=== PATIENT | female | born 1985 | race Caucasian/White ===

== ENCOUNTER 2021-12-01 10:46 | Observation (INO) | payer OTHER ==
[~2021-12-01] VITALS: Ht 167.6 cm; Wt 114.3 kg
[2021-12-01] MEDS ORDERED: METF-350 PO (11:11)
[2021-12-01] MEDS ORDERED: SYN.05 PO (11:12)
== END 2021-12-01 13:01 | disposition home or self-care (01) ==
LOC: MLD 10:46
PROVIDERS: ADMIT Obstetrics & Gynecology; ATTEND Obstetrics & Gynecology
DX: Z34.83 Encounter for supervision of other normal pregnancy, third trimester (principal); Z3A.36 36 weeks gestation of pregnancy
CPT/HCPCS: 59025; 76819; 81000; G0378; Q0092

== ENCOUNTER 2021-12-15 09:20 | Inpatient (IN) | payer OTHER ==
[~2021-12-15] VITALS: Ht 167.6 cm; Wt 113.9 kg
[~2021-12-15 09:20] MED LIST: METF-350 PO; SYN.05 PO
[2021-12-15] MEDS ORDERED: LACTATED RINGERS 500 ML IV SCH (10:10)
[2021-12-15] MEDS ORDERED: METHYLERGONOVINE 0.2 MG/ML AMP IM PRN (10:10)
[2021-12-15] MEDS ORDERED: OXYTOCIN 10 UNITS/ML VIAL IM SCH (10:10)
[2021-12-15] MEDS ORDERED: CARBOPROST 250 MCG/ML AMP IM PRN (10:10)
[2021-12-15 10:51] LABS: APPEARANCE,URINE SL CLOUDY (CLEAR); BILIRUBIN,URINE NEGATIVE (NEGATIVE); BLOOD, URINE NEGATIVE (NEGATIVE); COLOR,URINE YELLOW (YELLOW); LEUKOCYTE ESTERASE ,URINE 3+ (NEGATIVE); NITRITE, URINE NEGATIVE (NEGATIVE); PH,URINE 6.5 (5.0-9.0); UGLUCOSE NEGATIVE (NEGATIVE)
[2021-12-15 10:59] LABS: BASOPHILS % (AUTO) 0.3 % (0.0-2.0); EOSINOPHILS % (AUTO) 0.5 % (0.0-4.0); HEMATOCRIT 36.7 % (36-48); HEMOGLOBIN 12.2 g/dL (12.0-16.0); LYMPHOCYTES # (AUTO) 1.2 K/uL (2.5-16.5); LYMPHOCYTES % (AUTO) 17.4 % (20.5-51.1); MEAN CORPUSCULAR HEMOGLOBIN 29 pg (27-31); MEAN CORPUSCULAR HGB CONC 33 g/dL (33-37); MEAN CORPUSCULAR VOLUME 88.2 fL (80-94); MONOCYTES # (AUTO) 0.5 K/uL (0.8-1.0); NEUTROPHILS # (AUTO) 4.9 K/uL (1.8-7.7); NEUTROPHILS % (AUTO) 73.8 % (42.2-75.2); PLATELET COUNT (AUTO) 231 K/uL (140-450); RED BLOOD CELL COUNT(AUTO) 4.16 MIL/uL (4.20-5.40); RED CELL DISTRIBUTION WIDTH 15.9 % (11.6-13.7); WHITE BLOOD COUNT (AUTO) 6.6 K/uL (4.8-10.8)
[2021-12-15 11:05] LABS: RBC,URINE 0-5 /HPF (0-5)
[2021-12-15 11:08] LABS: ALBUMIN 2.7 g/dL (3.4-5.0); ANION GAP 14.1 (8-16); CALCIUM OXALATE CRYSTALS,UR None Seen /HPF (None Seen); CARBON DIOXIDE 22.7 mmol/L (21-32); CREATININE 0.7 mg/dL (0.6-1.3); OTHER CRYSTALS,URINE None Seen /HPF (None Seen); POTASSIUM 3.8 mmol/L (3.5-5.1); TOTAL BILIRUBIN 0.7 mg/dL (0.0-1.0); TRICHOMONAS,URINE None Seen /HPF (None Seen); TRIPLE PHOSPHATE CRYSTAL,UR None Seen /HPF (None Seen); URIC ACID CRYSTALS,URINE None Seen /HPF (None Seen); URINE AMORPHOUS URATE None Seen /HPF (None Seen); YEAST,URINE None Seen /HPF (None Seen)
[2021-12-15 11:09] LABS: COARSE GRANULAR CASTS,URINE None Seen /LPF (None Seen); FINE GRANULAR CASTS,URINE None Seen /LPF (None Seen); HYALINE CASTS, URINE None Seen /LPF (None Seen); OTHER CASTS, URINE None Seen /LPF (None Seen); RED BLOOD CELL CASTS,URINE None Seen /LPF (None Seen); WAXY CASTS,URINE None Seen /LPF (None Seen)
[2021-12-15] MEDS: LACTATED RINGERS 1,000 ML IV SCH ×2 (11:43→19:51)
[2021-12-15] MEDS ORDERED: INSULIN LISPRO SLIDING SCALE 100 UNITS/ML VIAL SUBQ PRN (12:20)
[2021-12-15] MEDS ORDERED: BLOOD GLUCOSE MONITORING 1 DEV DEV FS SCH (12:20)
[2021-12-15] MEDS: MISOPROSTOL 25 MCG TAB VG SCH ×2 (13:09)
[2021-12-15 14:22] VITALS: BP 130/71
--- NOTE | 2021-12-15 14:55 | NUR ---
PATIENT HAS BEEN SCREENED AND CATEGORIZED LOW NUTRITION RISK. PATIENT WILL BE SEEN WITHIN 7 DAYS OF ADMISSION. 12/21/[address]
[2021-12-15] MEDS ORDERED: PNV1TABL5 PO (15:23)
[2021-12-16] MEDS: LACTATED RINGERS 1,000 ML IV SCH ×2 (04:40→21:39)
[2021-12-16] MEDS: MISOPROSTOL 25 MCG TAB VG SCH (06:07)
[2021-12-16] MEDS ORDERED: OXYTOCIN 20 UNITS in LACTATED RINGERS 1,000 ML IV SCH (12:00)
[2021-12-16] MEDS ORDERED: OXYTOCIN 20 UNITS/LR PREMIX 1,000 ML IV ONE (12:07)
[2021-12-16] MEDS ORDERED: ROPIVACAINE 0.2%/NS PREMIX 200 ML EPI ONE (16:55)
[2021-12-16] MEDS ORDERED: LIDOCAINE 1% 500 MG/50 ML VIAL ONE (17:15)
[2021-12-16] MEDS ORDERED: AMPICILLIN 2,000 MG in NACL 0.9% 100 ML IV SCH (19:13)
[2021-12-16] MEDS ORDERED: AMPICILLIN 2,000 MG VIAL ONE (19:13)
[2021-12-17] MEDS ORDERED: AMPICILLIN 1,000 MG VIAL ONE ×3 (00:22→08:45)
[2021-12-17] MEDS: AMPICILLIN 1,000 MG in NACL 0.9% 50 ML IV SCH ×2 (00:35→04:46)
[2021-12-17] MEDS: LACTATED RINGERS 1,000 ML IV SCH ×2 (04:53→11:56)
[2021-12-17] MEDS ORDERED: ROPIVACAINE 0.2%/NS PREMIX 200 ML EPI ONE (10:28)
[2021-12-17] MEDS ORDERED: NEOSTIGMINE 1:1000 10 MG/10 ML VIAL ONE (13:37)
[2021-12-17] MEDS ORDERED: DEXAMETHASONE 4 MG/ML VIAL ONE (13:37)
[2021-12-17] MEDS ORDERED: ONDANSETRON 4 MG/2 ML VIAL ONE (13:37)
[2021-12-17] MEDS ORDERED: MORPHINE PRES FREE 10 MG/10 ML AMP IV ONE (13:44)
[2021-12-17] MEDS ORDERED: LIDOCAINE/EPI MPF 2%1:200000 10 ML VIAL INJ ONE (13:44)
[2021-12-17] MEDS ORDERED: OXYTOCIN 20 UNITS/LR PREMIX 1,000 ML IV ONE (14:00)
[2021-12-17] MEDS ORDERED: OXYTOCIN 20 UNITS in LACTATED RINGERS 1,000 ML IV SCH (14:25)
[2021-12-17] MEDS ORDERED: oxyCODONE/APAP 5/325 MG 1 TAB TAB PO PRN ×2 (14:25→14:30)
[2021-12-17] MEDS ORDERED: MEASLES, MUMPS, AND RUBELLA 1 VIAL SQVAC ONE (14:25)
[2021-12-17] MEDS ORDERED: METHYLERGONOVINE 0.2 MG/ML AMP IM PRN (14:25)
[2021-12-17] MEDS ORDERED: PROMETHAZINE 25 MG/ML VIAL IVP PRN (14:25)
[2021-12-17] MEDS ORDERED: METOCLOPRAMIDE 10 MG/2 ML INJ VIAL IVP PRN (15:10)
[2021-12-17] MEDS ORDERED: ONDANSETRON 4 MG/2 ML VIAL IVP PRN (15:10)
[2021-12-17] MEDS ORDERED: NALOXONE 0.4 MG/ML VIAL IVP PRN ×3 (15:10)
[2021-12-17] MEDS: KETOROLAC 30 MG/ML VIAL IM/IVP SCH (17:47)
[2021-12-17] MEDS: diphenhydrAMINE 50 MG/ML VIAL IVP PRN ×2 (17:49→22:48)
[2021-12-17] MEDS: OXYTOCIN 20 UNITS in LACTATED RINGERS 1,000 ML IV SCH (22:08)
[2021-12-18] MEDS: KETOROLAC 30 MG/ML VIAL IM/IVP SCH ×3 (00:07→12:00)
[2021-12-18] MEDS ORDERED: OXYTOCIN 20 UNITS/LR PREMIX 1,000 ML IV ONE (04:46)
[2021-12-18 05:31] LABS: BASOPHILS % (AUTO) 0.2 % (0.0-2.0); EOSINOPHILS % (AUTO) 0.1 % (0.0-4.0); HEMATOCRIT 36.9 % (36-48); HEMOGLOBIN 12.3 g/dL (12.0-16.0); LYMPHOCYTES # (AUTO) 1.5 K/uL (2.5-16.5); LYMPHOCYTES % (AUTO) 10.8 % (20.5-51.1); MEAN CORPUSCULAR HEMOGLOBIN 30 pg (27-31); MEAN CORPUSCULAR HGB CONC 33 g/dL (33-37); MEAN CORPUSCULAR VOLUME 88.9 fL (80-94); MONOCYTES # (AUTO) 1.1 K/uL (0.8-1.0); MONOCYTES % (AUTO) 8.2 % (1.7-9.3); NEUTROPHILS # (AUTO) 11.1 K/uL (1.8-7.7); NEUTROPHILS % (AUTO) 80.7 % (42.2-75.2); PLATELET COUNT (AUTO) 231 K/uL (140-450); RED BLOOD CELL COUNT(AUTO) 4.16 MIL/uL (4.20-5.40); RED CELL DISTRIBUTION WIDTH 15.9 % (11.6-13.7); WHITE BLOOD COUNT (AUTO) 13.7 K/uL (4.8-10.8)
[2021-12-18] MEDS: OXYTOCIN 20 UNITS in LACTATED RINGERS 1,000 ML IV SCH (06:05)
[2021-12-18] MEDS: IBUPROFEN 600 MG TAB PO SCH ×2 (08:00→18:26)
[2021-12-18] MEDS ORDERED: bisacodyL 10 MG SUPP RC SCH (09:00)
[2021-12-19] MEDS ORDERED: CAMERA MC ONE (04:00)
[2021-12-19] MEDS: IBUPROFEN 600 MG TAB PO SCH (08:45)
== END 2021-12-19 12:40 | disposition home or self-care (01) | DRG 540 ==
LOC: MLD 09:20 → MFCC 12-17 15:30
PROVIDERS: ADMIT Obstetrics & Gynecology; ATTEND Obstetrics & Gynecology
PROC: 10D00Z1 Extraction of Products of Conception, Low, Open Approach (ICD-10-PCS; principal; 2021-12-17 13:00)
DX: O76 Abnormality in fetal heart rate and rhythm complicating labor and delivery (principal); O45.93 Premature separation of placenta, unspecified, third trimester; O24.429 Gestational diabetes mellitus in childbirth, unspecified control; O99.824 Streptococcus B carrier state complicating childbirth; Z20.822 Contact with and (suspected) exposure to COVID-19; O69.81X0 Labor and delivery complicated by cord around neck, without compression, not applicable or unspecified; Z37.0 Single live birth; Z3A.39 39 weeks gestation of pregnancy
CPT/HCPCS: 36415; 51702; 59200; 76815; 80053; 81001; 82948; 85025; 86592; 86886; 86900; 86901; 87086; J0290; J0690; J1100; J1200; J1815; J1885; J2001; J2270; J2405; J2590; J2710; J2795; J7060; J7120; Q0092

== ENCOUNTER 2023-07-27 12:22 | Emergency (ER) | payer OTHER ==
[~2023-07-27] VITALS: Ht 167.6 cm; Wt 106.7 kg
[~2023-07-27 12:22] MED LIST changes: +PNV1TABL5 PO; +SYN.075 PO
[2023-07-27 12:55] VITALS: BP 119/68; PULSE 83; RESP 18; TEMP 97.2; O2SAT 100
[2023-07-27 14:00] LABS: BASOPHILS % (AUTO) 0.4 % (0.0-2.0); EOSINOPHILS # (AUTO) 0.1 K/uL (0-0.4); EOSINOPHILS % (AUTO) 0.9 % (0.0-4.0); HEMATOCRIT 36.8 % (36-48); HEMOGLOBIN 12.3 g/dL (12.0-16.0); LYMPHOCYTES # (AUTO) 1.7 K/uL (2.5-16.5); LYMPHOCYTES % (AUTO) 20.2 % (20.5-51.1); MEAN CORPUSCULAR HEMOGLOBIN 30 pg (27-31); MEAN CORPUSCULAR HGB CONC 33 g/dL (33-37); MEAN CORPUSCULAR VOLUME 90.5 fL (80-94); MONOCYTES # (AUTO) 0.6 K/uL (0.8-1.0); MONOCYTES % (AUTO) 7.2 % (1.7-9.3); NEUTROPHILS % (AUTO) 71.3 % (42.2-75.2); PLATELET COUNT (AUTO) 267 K/uL (140-450); RED BLOOD CELL COUNT(AUTO) 4.06 MIL/uL (4.20-5.40); RED CELL DISTRIBUTION WIDTH 14.3 % (11.6-13.7); WHITE BLOOD COUNT (AUTO) 8.4 K/uL (4.8-10.8)
[2023-07-27 14:13] LABS: ANION GAP 10.9 (8-16); CALCIUM 8.3 mg/dL (8.5-10.1); CREATININE 0.5 mg/dL (0.6-1.3); POTASSIUM 3.9 mmol/L (3.5-5.1); TOTAL BILIRUBIN 0.5 mg/dL (0.0-1.0); TOTAL PROTEIN, SERUM 6.9 g/dL (6.4-8.2)
[2023-07-27 15:12] LABS: APPEARANCE,URINE CLEAR (CLEAR); BILIRUBIN,URINE NEGATIVE (NEGATIVE); BLOOD, URINE NEGATIVE (NEGATIVE); COLOR,URINE YELLOW (YELLOW); LEUKOCYTE ESTERASE ,URINE 3+ (NEGATIVE); NITRITE, URINE NEGATIVE (NEGATIVE); PROTEIN,URINE NEGATIVE (NEGATIVE); UGLUCOSE NEGATIVE (NEGATIVE); UROBILINOGEN,URINE 0.2 EU/dL (0.2 - 1)
[2023-07-27 15:31] LABS: BACTERIA,URINE FEW /HPF (None Seen); MUCUS,URINE None Seen /LPF (None Seen); RBC,URINE 0-5 /HPF (0-5); SQUAMOUS EPITHELIAL CELL,UR 4-10 (MOD) /LPF (0-3 (FEW)); TRICHOMONAS,URINE None Seen /HPF (None Seen); WHITE BLOOD CELL CASTS,URINE None Seen /LPF (None Seen); YEAST,URINE None Seen /HPF (None Seen)
[2023-07-27] MEDS ORDERED: NITR100C7 PO (16:02)
[2023-07-27 16:10] VITALS: BP 122/67; PULSE 80; RESP 18; TEMP 97.4; O2SAT 100
== END 2023-07-27 16:10 | disposition home or self-care (01) ==
LOC: MED 12:22
DX: O23.42 Unspecified infection of urinary tract in pregnancy, second trimester (principal); N39.0 Urinary tract infection, site not specified; E03.9 Hypothyroidism, unspecified; Z3A.18 18 weeks gestation of pregnancy; Z79.899 Other long term (current) drug therapy
CPT/HCPCS: 36415; 76805; 80053; 81001; 83690; 84702; 85025; 86886; 86900; 86901; 87086; 99284

== ENCOUNTER 2023-12-11 21:07 | Inpatient (IN) | payer OTHER ==
[~2023-12-11] VITALS: Ht 167.6 cm; Wt 110.2 kg
[~2023-12-11 21:07] MED LIST changes: +NITR100C7 PO
[2023-12-11 22:00] VITALS: BP 130/72; PULSE 89; RESP 18; TEMP 98.1
[2023-12-11 22:07] LABS: APPEARANCE,URINE SLIGHTLY HAZY (CLEAR); BILIRUBIN,URINE NEGATIVE (NEGATIVE); BLOOD, URINE NEGATIVE (NEGATIVE); COLOR,URINE YELLOW (YELLOW); LEUKOCYTE ESTERASE ,URINE 2+ (NEGATIVE); NITRITE, URINE NEGATIVE (NEGATIVE); PH,URINE 6.5 (5.0-9.0); PROTEIN,URINE NEGATIVE (NEGATIVE); UGLUCOSE NEGATIVE (NEGATIVE)
[2023-12-11 22:09] LABS: RBC,URINE 0 /HPF (0-5)
[2023-12-11 22:10] LABS: BACTERIA,URINE 2+ /HPF (None Seen); BASOPHILS % (AUTO) 0.4 % (0.0-2.0); EOSINOPHILS # (AUTO) 0.1 K/uL (0-0.4); EOSINOPHILS % (AUTO) 1.7 % (0.0-4.0); HEMATOCRIT 36.6 % (36-48); HEMOGLOBIN 12.5 g/dL (12.0-16.0); LYMPHOCYTES # (AUTO) 1.2 K/uL (2.5-16.5); LYMPHOCYTES % (AUTO) 17.6 % (20.5-51.1); MEAN CORPUSCULAR HEMOGLOBIN 30 pg (27-31); MEAN CORPUSCULAR HGB CONC 34 g/dL (33-37); MONOCYTES # (AUTO) 0.8 K/uL (0.8-1.0); MONOCYTES % (AUTO) 11.3 % (1.7-9.3); MUCUS,URINE None Seen /LPF (None Seen); NEUTROPHILS # (AUTO) 4.6 K/uL (1.8-7.7); PLATELET COUNT (AUTO) 236 K/uL (140-450); RED BLOOD CELL COUNT(AUTO) 4.11 MIL/uL (4.20-5.40); RED CELL DISTRIBUTION WIDTH 16.1 % (11.6-13.7); SQUAMOUS EPITHELIAL CELL,UR 0-3 (FEW) /LPF (0-3 (FEW)); WHITE BLOOD COUNT (AUTO) 6.7 K/uL (4.8-10.8)
[2023-12-11 22:25] LABS: ALBUMIN 2.8 g/dL (3.4-5.0); ANION GAP 15.6 (8-16); CALCIUM 8.7 mg/dL (8.5-10.1); CARBON DIOXIDE 21.2 mmol/L (21-32); CREATININE 0.5 mg/dL (0.6-1.3); POTASSIUM 3.8 mmol/L (3.5-5.1); TOTAL BILIRUBIN 0.8 mg/dL (0.0-1.0); TOTAL PROTEIN, SERUM 6.4 g/dL (6.4-8.2)
[2023-12-11] MEDS: LACTATED RINGERS 1,000 ML IV SCH (23:24)
[2023-12-12] MEDS: LEVOTHYROXINE 0.088 MG TAB PO SCH (09:02)
[2023-12-12] MEDS: CITRIC ACID/SODIUM CITRATE 30 ML UDC PO SCH (09:11)
[2023-12-12] MEDS ORDERED: ONDANSETRON 4 MG/2 ML VIAL ONE (09:35)
[2023-12-12] MEDS ORDERED: MORPHINE PRES FREE 10 MG/10 ML AMP IV ONE (09:44)
[2023-12-12] MEDS: ceFAZolin 2,000 MG VIAL ONE (10:12)
[2023-12-12] MEDS ORDERED: diphenhydrAMINE 50 MG/ML VIAL ONE (10:21)
[2023-12-12] MEDS ORDERED: NALOXONE 0.4 MG/ML VIAL IVP PRN ×3 (10:45)
[2023-12-12] MEDS ORDERED: NALBUPHINE 10 MG/ML AMP IVP PRN (10:45)
[2023-12-12] MEDS: diphenhydrAMINE 50 MG/ML VIAL IVP PRN (10:50)
[2023-12-12] MEDS: KETOROLAC 30 MG/ML VIAL ONE (11:00)
[2023-12-12] MEDS: OXYTOCIN/0.9 % SODIUM CHLORIDE 500 ML IV ONE (11:11)
[2023-12-12] MEDS ORDERED: METHYLERGONOVINE 0.2 MG/ML AMP IM PRN (11:30)
[2023-12-12] MEDS ORDERED: KETOROLAC 30 MG/ML VIAL IVP PRN (11:30)
[2023-12-12] MEDS ORDERED: MEASLES, MUMPS, AND RUBELLA 1 VIAL SQVAC ONE (11:30)
[2023-12-12] MEDS ORDERED: MEASLES, MUMPS, AND RUBELLA 1 VIAL SQVAC SCH (12:00)
[2023-12-12] MEDS: ONDANSETRON 4 MG/2 ML VIAL IVP PRN (17:36)
[2023-12-12] MEDS: KETOROLAC 30 MG/ML VIAL IM/IVP SCH (17:42)
[2023-12-13] MEDS ORDERED: OXYTOCIN/0.9 % SODIUM CHLORIDE 500 ML IV SCH (01:30)
[2023-12-13] MEDS: OXYTOCIN/0.9 % SODIUM CHLORIDE 500 ML IV ONE (01:36)
[2023-12-13 05:21] LABS: BASOPHILS % (AUTO) 0.2 % (0.0-2.0); EOSINOPHILS % (AUTO) 0.3 % (0.0-4.0); HEMATOCRIT 37.2 % (36-48); HEMOGLOBIN 12.6 g/dL (12.0-16.0); LYMPHOCYTES # (AUTO) 1.2 K/uL (2.5-16.5); LYMPHOCYTES % (AUTO) 10.2 % (20.5-51.1); MEAN CORPUSCULAR HEMOGLOBIN 30 pg (27-31); MEAN CORPUSCULAR HGB CONC 34 g/dL (33-37); MEAN CORPUSCULAR VOLUME 89.3 fL (80-94); MONOCYTES # (AUTO) 0.9 K/uL (0.8-1.0); MONOCYTES % (AUTO) 7.7 % (1.7-9.3); NEUTROPHILS # (AUTO) 9.5 K/uL (1.8-7.7); NEUTROPHILS % (AUTO) 81.6 % (42.2-75.2); PLATELET COUNT (AUTO) 237 K/uL (140-450); RED BLOOD CELL COUNT(AUTO) 4.16 MIL/uL (4.20-5.40); RED CELL DISTRIBUTION WIDTH 16.2 % (11.6-13.7); WHITE BLOOD COUNT (AUTO) 11.6 K/uL (4.8-10.8)
[2023-12-13] MEDS: BENZONATATE 100 MG CAPLF PO PRN (08:55)
[2023-12-13] MEDS: bisacodyL 5 MG TABEC PO PRN (08:56)
[2023-12-13] MEDS: SIMETHICONE 80 MG TAB.CHEW PO PRN (08:56)
[2023-12-13] MEDS ORDERED: oxyCODONE/APAP 5/325 MG 1 TAB TAB PO PRN (09:35)
[2023-12-13] MEDS: oxyCODONE/APAP 5/325 MG 1 TAB TAB PO PRN (09:50)
[2023-12-13] MEDS: guaiFENesin 20 MG/ML UDC PO PRN (15:24)
[2023-12-14] MEDS ORDERED: CAMERA MC ONE (03:25)
[2023-12-14] MEDS: IBUPROFEN 800 MG TAB PO PRN (08:52)
[2023-12-14] MEDS: bisacodyL 10 MG SUPP RC SCH (13:40)
== END 2023-12-14 15:05 | disposition home or self-care (01) | DRG 540 ==
LOC: MLD 21:07 → OBSVTOIN 12-12 06:28 → MFCC 12-12 11:30
PROVIDERS: ADMIT Obstetrics & Gynecology; ATTEND Obstetrics & Gynecology
PROC: 10D00Z1 Extraction of Products of Conception, Low, Open Approach (ICD-10-PCS; principal; 2023-12-12 09:30)
DX: O34.211 Maternal care for low transverse scar from previous cesarean delivery (principal); O60.23X0 Term delivery with preterm labor, third trimester, not applicable or unspecified; O24.429 Gestational diabetes mellitus in childbirth, unspecified control; R71.0 Precipitous drop in hematocrit; Z37.0 Single live birth; Z3A.37 37 weeks gestation of pregnancy
CPT/HCPCS: G0378 ×3; 36415; 76819; 80053; 81001; 82948; 85025; 86592; 86762; 86886; 86900; 86901; 87086; J1200; J1885; J2270; J2405; J2590; J2765; Q0092